=== PATIENT | female | born 1965 | race Caucasian/White ===

== ENCOUNTER 2016-06-11 10:04 | Outpatient (CLI) | payer MEDICAID | END 2016-06-11 10:05 | disposition home or self-care (01) | DX: Z00.00 Encounter for general adult medical examination without abnormal findings (principal) ==

== ENCOUNTER 2017-11-16 15:22 | Outpatient (CLI) | payer MEDICAID ==
[2017-11-16 15:47] LABS: MUDS CUTOFF CONCENTRATIONS CUTOFF CONC BELOW:
[2017-11-16 16:03] LABS: AMPHETAMINE SCREEN,URINE POSITIVE (NEGATIVE); BENZODIAZEPINES SCREEN, URINE POSITIVE (NEGATIVE); COCAINE SCREEN URINE NEGATIVE (NEGATIVE); METHADONE SCREEN, URINE NEGATIVE (NEGATIVE); METHAMPHETAMINES SCREEN, URINE POSITIVE (NEGATIVE); OPIATE SCREEN, URINE NEGATIVE (NEGATIVE); OXYCODONE SCREEN, URINE NEGATIVE (NEGATIVE); PROPOXYPHENE SCREEN, URINE NEGATIVE (NEGATIVE); TRICYCLIC ANTIDEPRESSANT,URINE POSITIVE (NEGATIVE)
== END 2017-11-16 15:23 | disposition home or self-care (01) ==
LOC: LAB 15:22
PROVIDERS: ATTEND Nurse Practitioner Psychiatric/Mental Health
DX: F33.0 Major depressive disorder, recurrent, mild (principal)
CPT/HCPCS: 80306

== ENCOUNTER 2018-01-27 16:36 | Emergency (ER) | payer MEDICAID ==
[2018-01-27] MEDS ORDERED: KETOROLAC 60 MG/2 ML VIAL IM STA (17:28)
[2018-01-27] MEDS ORDERED: CYCLOBENZAPRINE 10 MG TABLET PO STA (17:28)
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
--- NOTE | 2018-01-27 18:23 | XRAY Report ---
Reason: knee pain and swelling Procedure Date: 01/27/2018 Accession Number: [id number] / [id number] Procedure: XR - Knee 4 View RT CPT Code: FULL RESULT: EXAM: RIGHT KNEE RADIOGRAPHY EXAM DATE: 01/27/2018 05:46 PM. CLINICAL HISTORY: Knee pain and swelling. COMPARISON: 03/26/2016. TECHNIQUE: 4 views. FINDINGS: Bones: No acute fracture. Joints: Severe medial compartment joint space narrowing. Tricompartmental osteophytes. Small amount of suprapatellar joint fluid. Soft Tissues: No focal soft tissue swelling. IMPRESSION: 1. No acute osseus abnormality. 2. Severe medial compartment osteoarthrosis. RADIA
--- NOTE | 2018-01-27 18:26 | XRAY Report ---
Reason: fall Procedure Date: 01/27/2018 Accession Number: [id number] / [id number] Procedure: XR - Pelvis 1 View CPT Code: FULL RESULT: EXAM: PELVIS RADIOGRAPHY EXAM DATE: 01/27/2018 05:46 PM. CLINICAL HISTORY: Fall. COMPARISON: None. TECHNIQUE: 1 view. FINDINGS: No evidence of acute fracture. Pelvic ring appears intact. Sacroiliac joints, pubic symphysis and hip joints are preserved. IMPRESSION: No acute findings. RADIA
--- NOTE | 2018-01-27 19:11 | Ultrasound Report ---
Reason: hx DVT leg pain and some swelling Procedure Date: 01/27/2018 Accession Number: [id number] / [id number] Procedure: US - Duplex Ext Veins Right CPT Code: FULL RESULT: EXAM: RIGHT LOWER EXTREMITY VENOUS ULTRASOUND EXAM DATE: 01/27/2018 06:40 PM. CLINICAL HISTORY: Right leg pain and swelling. COMPARISON: DUPLEX EXT VEINS RIGHT 02/27/2015 4:25 PM. TECHNIQUE: Real-time sonographic vascular imaging was performed by the calender roll operator through the lower extremity utilizing both color-flow and Doppler spectral analysis. Multiple manufacturers representative static images were saved for review. FINDINGS: Common Femoral Vein (CFV): Normal. CFV-GSV Junction: Normal. Profunda Femoral Vein (PFV): Normal. Femoral Vein (FV) Prox: Normal. Femoral Vein (FV) Mid: Normal. Femoral Vein (FV) Dist: Normal. Popliteal Vein: Normal. Posterior Tibial Veins: Normal. Peroneal Veins: Normal. Contralateral Side CFV: Normal. Other: None. IMPRESSION: No evidence for deep venous thrombosis. RADIA
[2018-01-27 19:24] VITALS: BP 148/92
== END 2018-01-27 19:30 | disposition home or self-care (01) ==
LOC: ED 16:36
DX: M54.5 Low back pain (principal); R20.0 Anesthesia of skin; R22.41 Localized swelling, mass and lump, right lower limb; Z86.718 Personal history of other venous thrombosis and embolism; F17.200 Nicotine dependence, unspecified, uncomplicated
CPT/HCPCS: 72170; 73564; 93971; 96372; 99283; A9270

== ENCOUNTER 2018-08-22 08:00 | Outpatient (CLI) | payer MEDICAID ==
[2018-08-22 10:03] LABS: BASOPHILS # (AUTO) 0.1 10^3/uL (0.0-0.1); BASOPHILS % (AUTO) 1.5 %; EOSINOPHILS # (AUTO) 0.4 10^3/uL (0.0-0.7); EOSINOPHILS % (AUTO) 5.7 %; LYMPHOCYTES # (AUTO) 2.5 10^3/uL (1.5-3.5); LYMPHOCYTES % (AUTO) 34.5 %; MEAN CORPUSCULAR HEMOGLOBIN 28.3 pg (27.0-31.0); MEAN CORPUSCULAR HGB CONC 32.7 g/dL (32.0-36.0); MEAN CORPUSCULAR VOLUME 86.4 fL (81.0-99.0); MEAN PLATELET VOLUME 7.4 fL (7.9-10.8); MONOCYTES # (AUTO) 0.4 10^3/uL (0.0-1.0); MONOCYTES % (AUTO) 5.3 %; NEUTROPHILS # (AUTO) 3.9 10^3/uL (1.5-6.6); PLT - PLATELET COUNT 277 10^3/uL (130-450); RED BLOOD COUNT 4.95 10^6/uL (4.20-5.40); RED CELL DISTRIBUTION WIDTH 14.2 % (12.0-15.0); WHITE BLOOD COUNT 7.3 x10^3/uL (4.8-10.8)
[2018-08-22 10:22] LABS: ALBUMIN 3.7 g/dL (3.2-5.5); ALBUMIN/GLOBULIN RATIO 1.3 (1.0-2.2); ALKALINE PHOSPHATASE 82 IU/L (42-121); ALT ALANINE AMINOTRANSFERASE 19 IU/L (10-60); AST ASPARTATE AMINOTRANSFERASE 23 IU/L (10-42); BILIRUBIN,TOTAL 0.6 mg/dL (0.2-1.0); BUN - BLOOD UREA NITROGEN 18 mg/dL (6-20); CALCIUM 8.8 mg/dL (8.5-10.3); CARBON DIOXIDE - CO2 24 mmol/L (21-32); CHLORIDE 103 mmol/L (101-111); CHOL/HDL RATIO 3.8 (<4.4); CHOLESTEROL 180 mg/dL; CREATININE 0.8 mg/dL (0.4-1.0); GFR - MDRD 75 (>89); GLUCOSE 107 mg/dL (70-100); HDL CHOLESTEROL 47 mg/dL; LDL CHOLESTEROL,CALCULATED 104 mg/dL; LDL/HDL RATIO 2.2 (<4.4); SODIUM 137 mmol/L (135-145); TOTAL PROTEIN 6.6 g/dL (6.7-8.2); VLDL CHOLESTEROL 29 mg/dL
[2018-08-22 10:35] LABS: HEMOGLOBIN A1C 0.6 g/dL; HEMOGLOBIN A1C % 5.8 % (4.6-6.2)
== END 2018-08-22 23:59 | disposition home or self-care (01) ==
LOC: LAB 08:00
PROVIDERS: ATTEND Licensed Practical Nurse
DX: F43.10 Post-traumatic stress disorder, unspecified (principal); Z79.899 Other long term (current) drug therapy
CPT/HCPCS: 36415; 80050; 80061; 83036; 83721

== ENCOUNTER 2018-08-24 12:12 | Emergency (ER) | payer MEDICAID ==
--- NOTE | 2018-08-24 14:08 | ED Physician Documentation ---
History of Present Illness - Stated complaint Stated Complaint: HIGH BP - Chief complaint Chief Complaint: Cardiac - History obtained from History obtained from: Patient - History of Present Illness Timing: Chronic Pain level max: 0 Pain level now: 0 - Additonal information Additional information: Patient states that she has had high blood pressure for the past 4 years. Does not have a primary care doctor but does see [facility]. They state that they are going to start her on blood pressure medications on Wednesday, but recommend she come to the ER to be checked today. Patient is fully asymptomatic. No chest pain, no lightheadedness, no headaches, no shortness of breath, no vision changes. Had lab work done Wednesday that was reportedly normal. Nothing makes this better or worse. 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 - Present Medications Home Medications: Ambulatory Orders Medication Instructions Recorded Confirmed Albuterol [Ventolin Hfa] 2 puffs INH Q4H PRN 04/06/13 03/10/15 QUEtiapine [SEROquel] 500 mg PO DAILY 06/07/14 03/10/15 Cyclobenzaprine [Flexeril] 10 mg PO TID PRN #20 tablet 01/27/18 Ibuprofen [Motrin] 400 mg PO Q6H PRN #30 tablet 01/27/18 - Allergies Allergies/Adverse Reactions: Allergies Allergy/AdvReac Type Severity Reaction Status Date / Time sodium ferric gluconate Allergy Severe Respiratory Verified 08/24/18 12:24 complex [From Ferrlecit] sucrose [From Ferrlecit] Allergy Severe Respiratory Verified 08/24/18 12:24 acetaminophen [From Percocet] Allergy vomiting Verified 08/24/18 12:24 adhesive Allergy Rash Verified 08/24/18 12:24 amoxicillin [Amoxicillin] Allergy Rash Verified 08/24/18 12:24 iron Allergy Unknown Verified 08/24/18 12:25 oxycodone HCl * Allergy vomiting Verified 08/24/18 12:24 [From Percocet] Penicillins Allergy Rash Verified 08/24/18 12:24 - Social History Does the pt smoke?: Yes Smoking Status: Current every day smoker Does the pt drink ETOH?: No Does the pt have substance abuse?: No - Immunizations Immunizations are current?: No - POLST Patient has POLST: No PD ED PE NORMAL - Vitals Vital signs reviewed: Yes - General General: Alert and oriented X 3, No acute distress, Well developed/nourished - HEENT HEENT: PERRL, Moist mucous membranes - Neck Neck: Supple, no meningeal sign - Cardiac Cardiac: RRR, Strong equal pulses - Respiratory Respiratory: No respiratory distress, Clear bilaterally - Abdomen Abdomen: Soft, Non tender, Non distended - Derm Derm: Warm and dry - Extremities Extremities: No tenderness to palpate, No edema - Neuro Neuro: Alert and oriented X 3 - Psych Psych: Normal mood, Normal affect Results - Vitals Vitals: Vital Signs - 24 hr 08/24/18 12:22 Temperature 36.8 C Heart Rate 104 H Respiratory 17 Rate Blood Pressure 150/121 H O2 Saturation 98 Oxygen O2 Source Room air PD MEDICAL DECISION MAKING - ED course Complexity details: reviewed old records, considered differential, d/w patient ED course: Patient with asymptomatic hypertension. This is been ongoing for several years. No acute changes today. Asymptomatic. No significant abnormalities on recent blood work. We will follow-up with her doctor on Wednesday to have her medications started. Patient counseled regarding signs and symptoms for which I believe and urgent re-evaluation would be necessary. Patient with good understanding of and agreement to plan and is comfortable going home at this time This document was made in part using voice recognition software. While efforts are made to proofread this document, sound alike and grammatical errors may occur. Departure - Departure Disposition: 01 Home, Self Care Clinical Impression: Hypertension Qualifiers: Hypertension type: unspecified Qualified Code(s): I10 - Essential (primary) hypertension Condition: Good Instructions: ED HTN Established Follow-Up: your,doctor in 1 week [Other] Comments: Follow-up with your doctor for further care. They do need to start you on blood pressure medication. Return if you worsen
[2018-08-24 14:13] VITALS: BP 190/129
== END 2018-08-24 14:13 | disposition home or self-care (01) ==
LOC: ED 12:12
DX: I10 Essential (primary) hypertension (principal); F17.200 Nicotine dependence, unspecified, uncomplicated
CPT/HCPCS: 99283

== ENCOUNTER 2018-10-19 17:31 | Emergency (ER) | payer MEDICAID ==
--- NOTE | 2018-10-19 18:58 | ED Physician Documentation ---
History of Present Illness - Stated complaint Stated Complaint: GLF/RT SIDE PX - Chief complaint Chief Complaint: Trauma Ch/Bk - History obtained from History obtained from: Patient - History of Present Illness Timing: How many days ago (5) Pain level max: 7 Pain level now: 5 - Additonal information Additional information: RLQ pain x 5 days, getting progressively worse. States worse with movement and better with rest. No fevers. No nausea. no vomiting. Patient states that this started a day after she fell. She does not remember striking any objects. Review of Systems Constitutional: denies: Fever, Chills GI: denies: Nausea, Vomiting, Diarrhea : denies: Dysuria, Frequency, Hesitancy Skin: denies: Rash Musculoskeletal: denies: Neck pain, Back pain Neurologic: denies: Headache PD PAST MEDICAL HISTORY - Past Medical History Past Medical History: Yes Cardiovascular: Deep vein thrombosis Respiratory: Asthma, Sleep apnea, Other Endocrine/Autoimmune: None GI: GERD, Ulcers : None HEENT: Other Psych: Bipolar disorder, ADD/ADHD, Post traumatic stress disorder Musculoskeletal: Chronic back pain Derm: None - Past Surgical History Past Surgical History: Yes 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 - Present Medications Home Medications: Ambulatory Orders Medication Instructions Recorded Confirmed Albuterol [Ventolin Hfa] 2 puffs INH Q4H PRN 04/06/13 03/10/15 QUEtiapine [SEROquel] 100 mg PO DAILY 06/07/14 03/10/15 Ibuprofen [Motrin] 800 mg PO ONCE 10/19/18 - Allergies Allergies/Adverse Reactions: Allergies Allergy/AdvReac Type Severity Reaction Status Date / Time sodium ferric gluconate Allergy Severe Respiratory Verified 10/19/18 17:44 complex [From Ferrlecit] sucrose [From Ferrlecit] Allergy Severe Respiratory Verified 10/19/18 17:44 acetaminophen [From Percocet] Allergy vomiting Verified 10/19/18 17:44 adhesive Allergy Rash Verified 10/19/18 17:44 amoxicillin [Amoxicillin] Allergy Rash Verified 10/19/18 17:44 iron Allergy Unknown Verified 10/19/18 17:44 oxycodone HCl * Allergy vomiting Verified 10/19/18 17:44 [From Percocet] Penicillins Allergy Rash Verified 10/19/18 17:44 - Social History Does the pt smoke?: Yes Smoking Status: Current every day smoker Does the pt drink ETOH?: No Does the pt have substance abuse?: No - Immunizations Immunizations are current?: No - POLST Patient has POLST: No PD ED PE NORMAL - Vitals Vital signs reviewed: Yes - General General: Alert and oriented X 3, No acute distress, Other (Obese female) - HEENT HEENT: Moist mucous membranes - Neck Neck: Supple, no meningeal sign - Cardiac Cardiac: RRR, Strong equal pulses - Respiratory Respiratory: No respiratory distress, Clear bilaterally - Abdomen Abdomen: Soft, Other (Tender palpation right lower quadrant. No peritoneal signs.) - Back Back: No CVA TTP, No spinal TTP - Derm Derm: Warm and dry - Neuro Neuro: Alert and oriented X 3 - Psych Psych: Normal mood, Normal affect Results - Vitals Vitals: Vital Signs - 24 hr 10/19/18 10/19/18 17:40 21:10 Temperature 36 C L 36.7 C Heart Rate 97 85 Respiratory 18 22 Rate Blood Pressure 157/95 H 157/110 H O2 Saturation 98 97 Oxygen O2 Source Room air - Labs Labs: Laboratory Tests 10/19/18 10/19/18 10/19/18 19:00 19:00 19:00 WBC 7.8 RBC 4.72 Hgb 13.7 Hct 41.8 MCV 88.6 MCH 29.0 MCHC 32.8 RDW 13.2 Plt Count 334 MPV 9.4 Neut # (Auto) 4.3 Lymph # (Auto) 2.6 [place]acken # (Auto) 0.5 Eos # (Auto) 0.4 Baso # (Auto) 0.1 Absolute Nucleated RBC 0.00 Nucleated RBC % 0.0 Sodium 140 Potassium 3.8 Chloride 106 Carbon Dioxide 22 Anion Gap 12.0 BUN 29 H Creatinine 0.9 Estimated GFR (MDRD) 66 L Glucose 129 H Calcium 9.1 Total Bilirubin < 0.2 L AST 23 ALT 21 Alkaline Phosphatase 84 Total Protein 7.3 Albumin 4.2 Globulin 3.1 Albumin/Globulin Ratio 1.4 Lipase 25 Urine Color YELLOW Urine Clarity CLEAR Urine pH 6.0 Ur Specific [place] 1.025 Urine Protein NEGATIVE Urine Glucose (UA) NEGATIVE Urine Ketones NEGATIVE Urine Occult Blood NEGATIVE Urine Nitrite NEGATIVE Urine Bilirubin NEGATIVE Urine Urobilinogen 0.2 (NORMAL) Ur Leukocyte Esterase NEGATIVE Ur Microscopic Review NOT INDICATED Urine Culture Comments NOT INDICATED - Rads (name of study) CT abdomen pelvis Radiology: Prelim report reviewed, EMP read contemporaneously, See rad report (No acute abnormalities of the abdomen and pelvis, noting normal appendix. 2. Moderate diverticulosis without diverticulitis. 3. Degenerative disk disease at L2-L3. ) PD MEDICAL DECISION MAKING - ED course Complexity details: reviewed results, re-evaluated patient, considered differential, d/w patient ED course: 53-year-old female the right lower quadrant pain after a fall. Negative CT. Negative laboratory testing. Patient declines pain medication here for home. We will continue supportive care. Likely abdominal wall strain. Patient counseled regarding signs and symptoms for which I believe and urgent re- evaluation would be necessary. Patient with good understanding of and agreement to plan and is comfortable going home at this time This document was made in part using voice recognition software. While efforts are made to proofread this document, sound alike and grammatical errors may occur. Departure - Departure Disposition: 01 Home, Self Care Clinical Impression: Abdominal wall strain Qualifiers: Encounter type: initial encounter Qualified Code(s): S39.011A - Strain of muscle, fascia and tendon of abdomen, initial encounter Condition: Good Instructions: ED Strain Abdominal Muscle Follow-Up: Kamaljit Shepard MD [Primary Care Provider] - Within 1 week Comments: Your CT and labs are normal tonight. Return if you worsen. you can use Motrin and Tylenol as needed for pain. Heating pads may help as well. Discharge Date/Time: 10/19/18 21:16
[2018-10-19] MEDS ORDERED: IOVERSOL 320 100 ML VIAL IVP ONE ×2 (19:05→19:53)
[2018-10-19 19:12] LABS: BASOPHILS # (AUTO) 0.1 10^3/uL (0.0-0.1); BASOPHILS % (AUTO) 0.8 %; EOSINOPHILS # (AUTO) 0.4 10^3/uL (0.0-0.7); EOSINOPHILS % (AUTO) 5.2 %; HGB - HEMOGLOBIN 13.7 g/dL (12.0-16.0); LYMPHOCYTES # (AUTO) 2.6 10^3/uL (1.5-3.5); LYMPHOCYTES % (AUTO) 32.7 %; MEAN CORPUSCULAR HGB CONC 32.8 g/dL (32.0-36.0); MEAN CORPUSCULAR VOLUME 88.6 fL (81.0-99.0); MEAN PLATELET VOLUME 9.4 fL (7.9-10.8); MONOCYTES # (AUTO) 0.5 10^3/uL (0.0-1.0); NEUTROPHILS # (AUTO) 4.3 10^3/uL (1.5-6.6); NEUTROPHILS % (AUTO) 54.9 %; PLT - PLATELET COUNT 334 10^3/uL (130-450); RED BLOOD COUNT 4.72 10^6/uL (4.20-5.40); RED CELL DISTRIBUTION WIDTH 13.2 % (12.0-15.0); WHITE BLOOD COUNT 7.8 x10^3/uL (4.8-10.8)
[2018-10-19 19:21] LABS: ALBUMIN 4.2 g/dL (3.2-5.5); ALBUMIN/GLOBULIN RATIO 1.4 (1.0-2.2); ALKALINE PHOSPHATASE 84 IU/L (42-121); ALT ALANINE AMINOTRANSFERASE 21 IU/L (10-60); AST ASPARTATE AMINOTRANSFERASE 23 IU/L (10-42); BILIRUBIN,TOTAL < 0.2 mg/dL (0.2-1.0); BUN - BLOOD UREA NITROGEN 29 mg/dL (6-20); CALCIUM 9.1 mg/dL (8.5-10.3); CARBON DIOXIDE - CO2 22 mmol/L (21-32); CHLORIDE 106 mmol/L (101-111); CREATININE 0.9 mg/dL (0.4-1.0); GFR - MDRD 66 (>89); GLUCOSE 129 mg/dL (70-100); LIPASE 25 U/L (22-51); SODIUM 140 mmol/L (135-145); TOTAL PROTEIN 7.3 g/dL (6.7-8.2)
[2018-10-19 19:26] LABS: BILIRUBIN,URINE NEGATIVE (NEGATIVE); GLUCOSE, URINE (UA) NEGATIVE (NEGATIVE); KETONES,URINE (UA) NEGATIVE (NEGATIVE); LEUKOCYTE ESTERASE, URINE NEGATIVE (NEGATIVE); NITRITE,URINE NEGATIVE (NEGATIVE); OCCULT BLOOD,URINE NEGATIVE (NEGATIVE); PROTEIN,URINE NEGATIVE (NEGATIVE); UROBILINOGEN,URINE 0.2 (NORMAL) E.U./dL (NORMAL)
[2018-10-19 19:28] LABS: CLARITY,URINE CLEAR (CLEAR)
--- NOTE | 2018-10-19 20:24 | CT Report ---
Reason: RLQ abd pain Procedure Date: 10/19/2018 Accession Number: [id number] / [id number] Procedure: CT - Abdomen/Pelvis W CPT Code: FULL RESULT: EXAM: CT ABDOMEN AND PELVIS EXAM DATE: 10/19/2018 07:50 PM. CLINICAL HISTORY: Right lower quadrant pain. COMPARISONS: None. TECHNIQUE: Routine helical CT imaging was performed through the abdomen and pelvis. IV contrast: 100 cc of Optiray 320. Enteric contrast: No. Reconstructions: Coronal and sagittal. In accordance with CT protocol optimization, one or more of the following dose reduction techniques were utilized for this exam: automated exposure control, adjustment of mA and/or KV based on patient size, or use of iterative reconstructive technique. FINDINGS: Lung Bases: Unremarkable. Liver: Normal. No masses. Gallbladder/Bile Ducts: Unremarkable. Spleen: Normal. Pancreas: Normal. Adrenal Glands: Normal. Kidneys: Normal. No masses or hydronephrosis. Peritoneal Cavity/Bowel: Moderate diverticulosis. No free fluid, free air or adenopathy. No masses or acute inflammatory process. The appendix is well visualized and normal. Pelvic Organs: Normal. The bladder and visualized pelvic organs are within normal limits. Vasculature: No aneurysms or other significant abnormality. Bones: Degenerative disk disease at L2-L3. Other: None. IMPRESSION: 1. No acute abnormalities of the abdomen and pelvis, noting normal appendix. 2. Moderate diverticulosis without diverticulitis. 3. Degenerative disk disease at L2-L3. RADIA
[2018-10-19 21:11] VITALS: BP 157/110
== END 2018-10-19 21:16 | disposition home or self-care (01) ==
LOC: ED 17:31
DX: S39.011A Strain of muscle, fascia and tendon of abdomen, initial encounter (principal); W01.0XXA Fall on same level from slipping, tripping and stumbling without subsequent striking against object, initial encounter; M51.36 Other intervertebral disc degeneration, lumbar region; K57.30 Diverticulosis of large intestine without perforation or abscess without bleeding; F17.200 Nicotine dependence, unspecified, uncomplicated
CPT/HCPCS: 36415; 74177; 80053; 81003; 83690; 85025; 99282; 99284; Q9967; 81001; 87086

== ENCOUNTER 2019-04-07 03:23 | Emergency (ER) | payer MEDICAID ==
--- NOTE | 2019-04-07 05:01 | ED Physician Documentation ---
PD HPI URI - Stated complaint Stated Complaint: CP/CONGESTION - Chief complaint Chief Complaint: Resp - History obtained from History obtained from: Patient - History of Present Illness Timing - onset: How many weeks ago (2) Timing duration: Weeks Timing details: Gradual onset, Waxing and waning Pain level max: 0 Pain level now: 0 Associated symptoms: Sore throat (at beginning of illness, but this has resolved), Productive cough, Dyspnea. No: Fever, Chest pain Contributing factors: Sick contact (s.o. is registered in ED as patient, has similar symptoms) Improves by: Rest Worsened by: Activity Recently seen: Not recently seen Review of Systems Constitutional: reports: Reviewed and negative Throat: reports: Sore throat (resolved) Cardiac: reports: Reviewed and negative Respiratory: reports: Dyspnea, Cough, Wheezing PD PAST MEDICAL HISTORY - Past Medical History Cardiovascular: Deep vein thrombosis Respiratory: Asthma, Sleep apnea, Other Endocrine/Autoimmune: None GI: GERD, Ulcers : None HEENT: Other Psych: Bipolar disorder, ADD/ADHD, Post traumatic stress disorder Musculoskeletal: Chronic back pain Derm: None - Past Surgical History Past Surgical History: Yes 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 - Present Medications Home Medications: Ambulatory Orders Medication Instructions Recorded Confirmed Albuterol [Ventolin Hfa] 2 puffs INH Q4H PRN 04/06/13 03/10/15 QUEtiapine [SEROquel] 100 mg PO DAILY 06/07/14 03/10/15 Ibuprofen [Motrin] 800 mg PO ONCE 10/19/18 Albuterol Sulf [Ventolin Hfa 1 - 2 puffs INH Q4HR PRN #1 inhaler 04/07/19 Inhaler] - Allergies Allergies/Adverse Reactions: Allergies Allergy/AdvReac Type Severity Reaction Status Date / Time sodium ferric gluconate Allergy Severe Respiratory Verified 10/19/18 17:44 complex [From Ferrlecit] sucrose [From Ferrlecit] Allergy Severe Respiratory Verified 10/19/18 17:44 acetaminophen [From Percocet] Allergy vomiting Verified 10/19/18 17:44 adhesive Allergy Rash Verified 10/19/18 17:44 amoxicillin [Amoxicillin] Allergy Rash Verified 10/19/18 17:44 iron Allergy Unknown Verified 10/19/18 17:44 oxycodone HCl * Allergy vomiting Verified 10/19/18 17:44 [From Percocet] Penicillins Allergy Rash Verified 10/19/18 17:44 - Social History Does the pt smoke?: Yes Smoking Status: Current every day smoker Does the pt drink ETOH?: No Does the pt have substance abuse?: No - Immunizations Immunizations are current?: No - POLST Patient has POLST: No PD ED PE NORMAL - Vitals Vital signs reviewed: Yes - General General: Alert and oriented X 3, No acute distress, Well developed/nourished - HEENT HEENT: Pharynx benign - Cardiac Cardiac: RRR, No murmur - Respiratory Respiratory: No respiratory distress, Clear bilaterally Results - Vitals Vitals: Oxygen O2 Source Room air PD MEDICAL DECISION MAKING - ED course Complexity details: reviewed old records, considered differential, d/w patient ED course: here with s.o. who has similar symptoms. Patient has occasional bronchospastic cough during H+P. we discussed abx, particularly because her s.o. has significant exudative pharyngitis. patient says she had sore throat but it has resolved. her lungs are CTA bilaterally. she says she does not want an antibiotic and is content to have just an MDI for albuterol at this time Departure - Departure Disposition: 01 Home, Self Care Clinical Impression: Bronchitis Condition: Good Instructions: ED Reactive Airway Disease, ED Upper Resp Infec No Abx Tx Prescriptions: Albuterol Sulf [Ventolin Hfa Inhaler] 1 - 2 puffs INH Q4HR PRN #1 inhaler PRN Reason: Shortness Of Air/Wheezing Discharge Date/Time: 04/07/19 06:02
[2019-04-07 06:02] VITALS: BP 167/95
== END 2019-04-07 06:02 | disposition home or self-care (01) ==
LOC: ED 03:23
DX: J40 Bronchitis, not specified as acute or chronic (principal); F17.200 Nicotine dependence, unspecified, uncomplicated
CPT/HCPCS: 93005; 99283

== ENCOUNTER 2019-04-21 13:01 | Emergency (ER) | payer MEDICAID ==
--- NOTE | 2019-04-21 14:13 | ED Physician Documentation ---
PD HPI HEENT - Stated complaint Stated Complaint: DENTAL PX - Chief complaint Chief Complaint: Heent - History obtained from History obtained from: Patient - History of Present Illness Timing - onset: How many days ago (few days ago, had part of tooth break off and has increasing pain in area. No noted drainage nor swelling. Pain to the jaw and feeling it up to the TMJ area.) Timing - duration: Days Timing - details: Gradual onset, Still present Location: Tooth. No: Right ear, Throat Improves: No: Medication (ibuprofen) Associated symptoms: No: Fever, Congestion, Facial swelling Similar symptoms before: Diagnosis (dental infections - tried to get into dental clinic, but they did not have appts available for weeks.) Recently seen: Not recently seen Review of Systems Constitutional: denies: Fever, Chills, Myalgias Ears: reports: Drainage/discharge Nose: reports: Rhinorrhea / runny nose Cardiac: denies: Chest pain / pressure Respiratory: denies: Dyspnea, Cough GI: denies: Abdominal Pain, Nausea, Vomiting : denies: Dysuria PD PAST MEDICAL HISTORY - Past Medical History Cardiovascular: Deep vein thrombosis Respiratory: Asthma, Sleep apnea, Other Endocrine/Autoimmune: None GI: GERD, Ulcers : None HEENT: Other Psych: Bipolar disorder, ADD/ADHD, Post traumatic stress disorder Musculoskeletal: Chronic back pain Derm: None - Past Surgical History Past Surgical History: Yes Ortho: 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: 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 - Present Medications Home Medications: Ambulatory Orders Medication Instructions Recorded Confirmed Albuterol [Ventolin Hfa] 2 puffs INH Q4H PRN 04/06/13 03/10/15 QUEtiapine [SEROquel] 100 mg PO DAILY 06/07/14 03/10/15 Ibuprofen [Motrin] 800 mg PO ONCE 10/19/18 Albuterol Sulf [Ventolin Hfa 1 - 2 puffs INH Q4HR PRN #1 inhaler 04/07/19 Inhaler] Clindamycin HCl [Clindamycin 300MG 300 mg PO TID #20 capsule 04/21/19 CAP] Hydrocodone/Acetaminophen [[place] 1 each PO Q6H PRN #20 tablet 04/21/19 7.5-325 Tablet] Lidocaine Viscous 2% [Xylocaine 1 applic PO Q4H PRN #20 ml 04/21/19 Viscous 2%] - Allergies Allergies/Adverse Reactions: Allergies Allergy/AdvReac Type Severity Reaction Status Date / Time sodium ferric gluconate Allergy Severe Respiratory Verified 10/19/18 17:44 complex [From Ferrlecit] sucrose [From Ferrlecit] Allergy Severe Respiratory Verified 10/19/18 17:44 acetaminophen [From Percocet] Allergy vomiting Verified 10/19/18 17:44 adhesive Allergy Rash Verified 10/19/18 17:44 amoxicillin [Amoxicillin] Allergy Rash Verified 10/19/18 17:44 iron Allergy Unknown Verified 10/19/18 17:44 oxycodone HCl * Allergy vomiting Verified 10/19/18 17:44 [From Percocet] Penicillins Allergy Rash Verified 10/19/18 17:44 - Social History Does the pt smoke?: Yes Smoking Status: Current every day smoker Does the pt drink ETOH?: No Does the pt have substance abuse?: No - Immunizations Immunizations are current?: No - POLST Patient has POLST: No PD ED PE NORMAL - Vitals Vital signs reviewed: Yes - General General: Alert and oriented X 3, Well developed/nourished, Other (appears in pain and holding right jaw with hand. ) - HEENT HEENT: Ears normal, Pharynx benign. No: Dentition benign (caries noted, and there is part of core of tooth missing in the painful area, tender to palpation in the gum without swelling/fluctuance noted. ) - Neck Neck: Supple, no meningeal sign, No adenopathy - Cardiac Cardiac: RRR, No murmur - Respiratory Respiratory: Clear bilaterally - Derm Derm: Normal color, Warm and dry, No rash Results - Vitals Vitals: Vital Signs - 24 hr 04/21/19 04/21/19 13:08 15:10 Temperature 36.6 C 36.8 C Heart Rate 95 92 Respiratory 14 22 Rate Blood Pressure 180/100 H 188/138 H O2 Saturation 98 94 Oxygen O2 Source Room air PD MEDICAL DECISION MAKING - ED course Complexity details: considered differential (dental decay and nerve pain vs early infection), d/w patient Departure - Departure Disposition: 01 Home, Self Care Clinical Impression: Pain due to dental caries Condition: Stable Record reviewed to determine appropriate education?: Yes Instructions: ED Tooth Pain Prescriptions: Clindamycin HCl [Clindamycin 300MG CAP] 300 mg PO TID #20 capsule Hydrocodone/Acetaminophen [[place] 7.5-325 Tablet] 1 each PO Q6H PRN #20 tablet PRN Reason: Pain Lidocaine Viscous 2% [Xylocaine Viscous 2%] 1 applic PO Q4H PRN #20 ml PRN Reason: Pain Comments: Rinse the tooth and gum area with warm water or baking soda or with water to cleanse the area 2-3 times a day. Use lidocaine small amount with Q-tip to help with numbing the tooth area. Continue some anti-inflammatories such as ibup rofen 2 tablets 3 times a day. Add hydrocodone as needed for pain. Also add clindamycin antibiotic 3 times a day for a week. Recheck if not improving over the next several days. Follow-up with dentist as soon as they have an available appointment Discharge Date/Time: 04/21/19 15:12
[2019-04-21] MEDS ORDERED: NAPROXEN 250 MG TABLET PO STA (14:44)
[2019-04-21] MEDS ORDERED: LIDOCAINE VISCOUS 2% 15 ML UDC MM STA (14:44)
[2019-04-21] MEDS ORDERED: HYDROcod/ACETAM 5/325 MG TABLET PO STA (14:45)
[2019-04-21] MEDS ORDERED: CLINDAMYCIN 150 MG CAPSULE PO STA (14:46)
[2019-04-21 15:11] VITALS: BP 188/138
== END 2019-04-21 15:12 | disposition home or self-care (01) ==
LOC: ED 13:01
DX: K02.9 Dental caries, unspecified (principal); S02.5XXA Fracture of tooth (traumatic), initial encounter for closed fracture; X58.XXXA Exposure to other specified factors, initial encounter; F17.200 Nicotine dependence, unspecified, uncomplicated
CPT/HCPCS: 99282; 99284; A9270

== ENCOUNTER 2019-09-02 12:44 | Emergency (ER) | payer MEDICAID ==
--- NOTE | 2019-09-02 13:40 | ED Physician Documentation ---
PD HPI HEENT - Stated complaint Stated Complaint: TOOTH PX - Chief complaint Chief Complaint: Heent - History obtained from History obtained from: Patient - History of Present Illness Timing - onset: How many days ago (several days of swelling and pain) Timing - duration: Days (several days of swelling and pain, with some discharge from gum after fracture of the tooth from decay a month ago. Tried to see [facility] but they were not yet open.) Timing - details: Gradual onset, Still present Location: Tooth (right lower frontal.) Associated symptoms: No: Fever, Congestion, Facial swelling Similar symptoms before: Diagnosis (dental decay and infections in the past) Review of Systems Constitutional: denies: Fever, Chills, Myalgias Nose: denies: Rhinorrhea / runny nose, Congestion Throat: denies: Sore throat Respiratory: denies: Cough GI: denies: Nausea, Vomiting Skin: denies: Rash, Lesions PD PAST MEDICAL HISTORY - Past Medical History Past Medical History: Yes Cardiovascular: Hypertension, Deep vein thrombosis Respiratory: Asthma, Sleep apnea, Other Neuro: None Endocrine/Autoimmune: None GI: GERD, Ulcers LICENSING SPECIALIST: None : None HEENT: Other Psych: ADD/ADHD, Post traumatic stress disorder Musculoskeletal: Chronic back pain Derm: None - Past Surgical History Past Surgical History: Yes Ortho: 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 surgery /LICENSING SPECIALIST: 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 - Present Medications Home Medications: Ambulatory Orders Medication Instructions Recorded Confirmed Albuterol [Ventolin Hfa] 2 puffs INH Q4H PRN 04/06/13 09/02/19 QUEtiapine [SEROquel] 100 mg PO DAILY 06/07/14 09/02/19 Azithromycin [Zithromax] 250 mg PO DAILY #6 tablet 09/02/19 Hydrocodone/Acetaminophen [[place] 1 each PO Q6H PRN #20 tablet 09/02/19 5-325 Tablet] Naproxen 500 mg PO BID #20 tablet 09/02/19 - Allergies Allergies/Adverse Reactions: Allergies Allergy/AdvReac Type Severity Reaction Status Date / Time sodium ferric gluconate Allergy Severe Respiratory Verified 09/02/19 13:02 complex [From Ferrlecit] sucrose [From Ferrlecit] Allergy Severe Respiratory Verified 09/02/19 13:02 acetaminophen [From Percocet] Allergy vomiting Verified 09/02/19 13:02 adhesive Allergy Rash Verified 09/02/19 13:02 amoxicillin [Amoxicillin] Allergy Rash Verified 09/02/19 13:02 clindamycin Allergy Rash Verified 09/02/19 13:08 iron Allergy Unknown Verified 09/02/19 13:02 oxycodone HCl * Allergy vomiting Verified 09/02/19 13:02 [From Percocet] Penicillins Allergy Rash Verified 09/02/19 13:02 - Social History Does the pt smoke?: Yes Smoking Status: Former smoker Does the pt drink ETOH?: No Does the pt have substance abuse?: No - Immunizations Immunizations are current?: No - POLST Patient has POLST: No PD ED PE NORMAL - Vitals Vital signs reviewed: Yes - General General: Alert and oriented X 3, Well developed/nourished, Other (appears in pain) - HEENT HEENT: Moist mucous membranes, Other (right lower frontal tooth with decay and is broken vertically (so not really amenable to temporary filling). There is swelling and tender in gum without fluctuance.) Results - Vitals Vitals: Vital Signs - 24 hr 09/02/19 09/02/19 13:03 14:16 Temperature 36.8 C 37.0 C Heart Rate 105 H 105 H Respiratory 20 12 Rate Blood Pressure 146/100 H 139/94 H O2 Saturation 97 97 Oxygen O2 Source Room air PD MEDICAL DECISION MAKING - ED course Complexity details: reviewed old records (prior visits and [facility]. ), considered differential (seems to be acute process and is having clinically evident abscess/infection of the gum. ), d/w patient Departure - Departure Disposition: 01 Home, Self Care Clinical Impression: Dental abscess Condition: Stable Record reviewed to determine appropriate education?: Yes Instructions: ED Abscess Dental Prescriptions: Azithromycin [Zithromax] 250 mg PO DAILY #6 tablet Hydrocodone/Acetaminophen [[place] 5-325 Tablet] 1 each PO Q6H PRN #20 tablet PRN Reason: Pain Naproxen 500 mg PO BID #20 tablet Comments: Stay well-hydrated. Use antiseptic mouth wash around the area to clean the gums several times a day. Anti-inflammatory naproxen twice daily with food for the next 7 to 10 days. Antibiotic as directed. Add Tylenol or hydrocodone as need ed for pain. Call the dental clinic for an appointment. They are starting to see if people so should be able to provide a soon appointment. Discharge Date/Time: 09/02/19 14:19
[2019-09-02] MEDS ORDERED: AZITHROMYCIN 250 MG TABLET PO STA (14:00)
[2019-09-02] MEDS ORDERED: HYDROcod/ACETAM 7.5 MG/325 MG TABLET PO STA (14:00)
[2019-09-02] MEDS ORDERED: NAPROXEN 250 MG TABLET PO STA (14:00)
[2019-09-02 14:16] VITALS: BP 139/94
== END 2019-09-02 14:19 | disposition home or self-care (01) ==
LOC: ED 12:44
DX: K04.7 Periapical abscess without sinus (principal); I10 Essential (primary) hypertension; Z86.718 Personal history of other venous thrombosis and embolism
CPT/HCPCS: 99283; A9270

== ENCOUNTER 2020-12-17 11:59 | Emergency (ER) | payer MEDICAID ==
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
--- NOTE | 2020-12-17 12:33 | XRAY Report ---
PROCEDURE: Foot 3 View LT INDICATIONS: Trauma TECHNIQUE: 3 views of the foot were acquired. COMPARISON: None FINDINGS: Bones: Acute slightly comminuted fracture involving fifth metatarsal base is seen with fracture line extending through fifth TMT joint space. No other fracture or dislocation is seen. No suspicious bony lesion. Soft tissues: No tibiotalar joint effusion. Achilles tendon appears normal. IMPRESSION: Comminuted and nondisplaced intra-articular fracture involving fifth metatarsal base as above. Reviewed by: Renato Osullivan MD on 12/17/2020 12:31 PM PDT Approved by: Renato Osullivan MD on 12/17/2020 12:31 PM PDT Station ID: [id number]
--- NOTE | 2020-12-17 12:46 | XRAY Report ---
PROCEDURE: Wrist 3 View RT INDICATIONS: GLF and pain TECHNIQUE: 3 views of the wrist were acquired. COMPARISON: None FINDINGS: Bones: Triquetral fracture of indeterminate age. Wwlj-at-ljdzwlzq first CMC joint osteoarthritis. Mil d triscaphe joint arthritis. Soft tissues: No suspicious soft tissue calcifications. IMPRESSION: Triquetral fracture of indeterminate age. Recommend correlation for point tenderness. Reviewed by: Rita Meyer MD, PhD on 12/17/2020 12:45 PM PDT Approved by: Rita Meyer MD, PhD on 12/17/2020 12:45 PM PDT Station ID: [id number]
[2020-12-17 13:34] VITALS: BP 140/90
== END 2020-12-17 13:33 | disposition home or self-care (01) ==
LOC: ED 11:59
DX: S92.355A Nondisplaced fracture of fifth metatarsal bone, left foot, initial encounter for closed fracture (principal); W01.0XXA Fall on same level from slipping, tripping and stumbling without subsequent striking against object, initial encounter; Y93.K1 Activity, walking an animal; S62.114 Nondisplaced fracture of triquetrum [cuneiform] bone, right wrist; X58.XXXS Exposure to other specified factors, sequela; M19.031 Primary osteoarthritis, right wrist; I10 Essential (primary) hypertension; Z87.891 Personal history of nicotine dependence
CPT/HCPCS: 99283; 99284

== ENCOUNTER 2020-12-24 07:35 | Outpatient (CLI) | payer MEDICAID ==
[2020-12-24 08:00] LABS: BASOPHILS # (AUTO) 0.1 10^3/uL (0.0-0.1); BASOPHILS % (AUTO) 1.2 %; EOSINOPHILS # (AUTO) 0.4 10^3/uL (0.0-0.7); EOSINOPHILS % (AUTO) 5.6 %; HCT - HEMATOCRIT 44.7 % (37.0-47.0); HGB - HEMOGLOBIN 14.1 g/dL (12.0-16.0); LYMPHOCYTES # (AUTO) 2.9 10^3/uL (1.5-3.5); LYMPHOCYTES % (AUTO) 43.5 %; MEAN CORPUSCULAR HEMOGLOBIN 28.5 pg (27.0-31.0); MEAN CORPUSCULAR HGB CONC 31.5 g/dL (32.0-36.0); MEAN CORPUSCULAR VOLUME 90.3 fL (81.0-99.0); MEAN PLATELET VOLUME 9.2 fL (7.9-10.8); MONOCYTES # (AUTO) 0.4 10^3/uL (0.0-1.0); MONOCYTES % (AUTO) 6.6 %; NEUTROPHILS # (AUTO) 2.8 10^3/uL (1.5-6.6); NEUTROPHILS % (AUTO) 42.8 %; PLT - PLATELET COUNT 334 10^3/uL (130-450); RED BLOOD COUNT 4.95 10^6/uL (4.20-5.40); RED CELL DISTRIBUTION WIDTH 13.5 % (12.0-15.0); WHITE BLOOD COUNT 6.6 x10^3/uL (4.8-10.8)
[2020-12-24 08:12] LABS: ALBUMIN 4.3 g/dL (3.2-5.5); ALBUMIN/GLOBULIN RATIO 1.3 (1.0-2.2); ALKALINE PHOSPHATASE 82 IU/L (42-121); ALT ALANINE AMINOTRANSFERASE 18 IU/L (10-60); AST ASPARTATE AMINOTRANSFERASE 16 IU/L (10-42); BILIRUBIN,TOTAL 0.7 mg/dL (0.2-1.0); BUN - BLOOD UREA NITROGEN 25 mg/dL (6-20); CALCIUM 9.5 mg/dL (8.5-10.3); CARBON DIOXIDE - CO2 25 mmol/L (21-32); CHLORIDE 105 mmol/L (101-111); CHOL/HDL RATIO 4.4 (<4.4); CHOLESTEROL 217 mg/dL; CREATININE 1.1 mg/dL (0.4-1.0); GFR - MDRD 52 (>89); GLUCOSE 113 mg/dL (70-100); HDL CHOLESTEROL 49 mg/dL; LDL CHOLESTEROL,CALCULATED 125 mg/dL; LDL/HDL RATIO 2.6 (<4.4); SODIUM 140 mmol/L (135-145); TOTAL PROTEIN 7.5 g/dL (6.7-8.2); TRIGLYCERIDES 214 mg/dL; VLDL CHOLESTEROL 43 mg/dL
[2020-12-24 08:23] LABS: THYROID STIMULATING HORMONE 4.75 uIU/mL (0.34-5.60)
== END 2020-12-24 07:36 | disposition home or self-care (01) ==
LOC: LAB 07:35
PROVIDERS: ATTEND Family Medicine
DX: I10 Essential (primary) hypertension (principal); S62.91XS Unspecified fracture of right hand, sequela; E66.01 Morbid (severe) obesity due to excess calories
CPT/HCPCS: 36415; 80050; 80061; 83721

== ENCOUNTER 2021-02-04 10:46 | Outpatient (CLI) | payer MEDICAID ==
--- NOTE | 2021-02-13 02:22 | XRAY Report ---
PROCEDURE: Foot 3 View LT INDICATIONS: FRACTURE OF FIFTH METATARSAL BONE LEFT FOOT TECHNIQUE: 3 views of the foot were acquired. Images became available for review on 02/12/2021. COMPARISON: X-ray foot 12/17/2020. FINDINGS: Bones: There is a mildly displaced fracture of the fifth metatarsal base. While portions appear to de monstrate mild interval healing, there is a mildly increased appearance of fracture fragment diastase s along the lateral aspect.. No suspicious bony lesions. Soft tissues: No tibiotalar joint effusion. Achilles tendon appears normal. IMPRESSION: Fifth metatarsal base fracture with portion demonstrating mild increased diastases of fracture fragme nts as above. Reviewed by: Silvia Nichols MD on 02/13/2021 1:48 AM PDT Approved by: Silvia Nichols MD on 02/13/2021 1:48 AM PDT Station ID: [id number]
--- NOTE | 2021-02-13 09:41 | XRAY Report ---
PROCEDURE: Wrist 3 View RT INDICATIONS: DISPLACED FX OF TRIQUETRUM, R WRIST TECHNIQUE: 3 views of the wrist were acquired. COMPARISON: Right wrist radiographs 12/17/2020 FINDINGS: Bones: Small osseous fragment again seen projecting dorsal to the proximal carpal row, which does not appear significantly changed when compared to the prior exam. No new osseous abnormality is seen. Mi ld degenerative changes are seen at the triscaphe and first carpometacarpal joint. Soft tissues: No suspicious soft tissue calcifications. IMPRESSION: Minimally displaced triquetral fracture again demonstrated at the dorsum of the wrist. Reviewed by: Armani Ferrer MD on 02/13/2021 9:39 AM PDT Approved by: Armani Ferrer MD on 02/13/2021 9:39 AM PDT Station ID: [id number]
== END 2021-02-04 10:47 | disposition home or self-care (01) ==
LOC: DI.N 10:46
PROVIDERS: ATTEND Orthopaedic Surgery
DX: S92.352A Displaced fracture of fifth metatarsal bone, left foot, initial encounter for closed fracture (principal); S62.111 Displaced fracture of triquetrum [cuneiform] bone, right wrist

== ENCOUNTER 2021-05-26 07:41 | Outpatient (CLI) | payer MEDICAID ==
[2021-05-26 08:03] LABS: CALCIUM 8.8 mg/dL (8.5-10.3); CREATININE 1.4 mg/dL (0.4-1.0)
[2021-05-26 09:33] LABS: ESTIMATED AVERAGE GLUCOSE 120 mg/dL (70-100); HEMOGLOBIN A1c% 5.8 % (4.27-6.07)
== END 2021-05-26 07:42 | disposition home or self-care (01) ==
LOC: LAB 07:41
PROVIDERS: ATTEND Family Medicine
DX: R73.9 Hyperglycemia, unspecified (principal); E66.01 Morbid (severe) obesity due to excess calories; I10 Essential (primary) hypertension; L23.9 Allergic contact dermatitis, unspecified cause; J45.909 Unspecified asthma, uncomplicated
CPT/HCPCS: 36415; 80048; 83036

== ENCOUNTER 2023-02-22 07:35 | Outpatient (CLI) | payer MEDICAID ==
[2023-02-22 07:49] LABS: BASOPHILS # (AUTO) 0.1 10^3/uL (0.0-0.1); BASOPHILS % (AUTO) 0.9 %; EOSINOPHILS # (AUTO) 0.4 10^3/uL (0.0-0.7); EOSINOPHILS % (AUTO) 4.9 %; HCT - HEMATOCRIT 42.2 % (37.0-47.0); HGB - HEMOGLOBIN 13.6 g/dL (12.0-16.0); LYMPHOCYTES # (AUTO) 3.4 10^3/uL (1.5-3.5); LYMPHOCYTES % (AUTO) 42.3 %; MEAN CORPUSCULAR HGB CONC 32.2 g/dL (32.0-36.0); MEAN PLATELET VOLUME 9.3 fL (7.9-10.8); MONOCYTES # (AUTO) 0.6 10^3/uL (0.0-1.0); MONOCYTES % (AUTO) 6.9 %; NEUTROPHILS # (AUTO) 3.6 10^3/uL (1.5-6.6); NEUTROPHILS % (AUTO) 44.6 %; PLT - PLATELET COUNT 333 10^3/uL (130-450); RED BLOOD COUNT 4.69 10^6/uL (4.20-5.40); RED CELL DISTRIBUTION WIDTH 13.8 % (12.0-15.0)
[2023-02-22 08:15] LABS: ALBUMIN 4.4 g/dL (3.2-5.5); ALKALINE PHOSPHATASE 84 IU/L (42-121); ALT ALANINE AMINOTRANSFERASE 18 IU/L (10-60); AST ASPARTATE AMINOTRANSFERASE 18 IU/L (10-42); BILIRUBIN,TOTAL 0.4 mg/dL (0.2-1.0); BUN - BLOOD UREA NITROGEN 22 mg/dL (6-20); CALCIUM 9.8 mg/dL (8.5-10.3); CARBON DIOXIDE - CO2 27 mmol/L (21-32); CHLORIDE 105 mmol/L (101-111); CHOL/HDL RATIO 4.4 (<4.4); CHOLESTEROL 186 mg/dL; CREATININE 1.3 mg/dL (0.6-1.3); ESTIMATED AVERAGE GLUCOSE 126 mg/dL (70-100); GFR - MDRD 42 (>89); GLUCOSE 111 mg/dL (74-104); HDL CHOLESTEROL 42 mg/dL; LDL CHOLESTEROL,CALCULATED 108 mg/dL; LDL/HDL RATIO 2.6 (<4.4); SODIUM 139 mmol/L (135-145); TOTAL PROTEIN 6.6 g/dL (6.4-8.9); TRIGLYCERIDES 180 mg/dL (48-352); VLDL CHOLESTEROL 36 mg/dL
[2023-02-22 08:20] LABS: THYROID STIMULATING HORMONE 3.41 uIU/mL (0.34-5.60)
== END 2023-02-22 07:36 | disposition home or self-care (01) ==
LOC: LAB 07:35
PROVIDERS: ATTEND Physician Assistant
DX: I10 Essential (primary) hypertension (principal); Z13.220 Encounter for screening for lipoid disorders; R73.01 Impaired fasting glucose
CPT/HCPCS: 36415; 80050; 80061; 83036; 83721

== ENCOUNTER 2023-06-21 08:59 | Outpatient (CLI) | payer MEDICAID ==
[2023-06-21 09:31] LABS: CREATININE 1.3 mg/dL (0.6-1.3)
== END 2023-06-21 09:00 | disposition home or self-care (01) ==
LOC: LAB 08:59
PROVIDERS: ATTEND Physician Assistant
DX: N18.32 Chronic kidney disease, stage 3b (principal)
CPT/HCPCS: 36415; 80048

== ENCOUNTER 2023-06-24 06:31 | Day surgery (SDC) | payer MEDICAID ==
[2023-06-24] MEDS: LACTATED RINGERS 1,000 ML IV ONE ×2 (06:41→07:58)
--- NOTE | 2023-06-24 06:49 | ANESTHESIA ---
Pre-Anesthesia VS, & Labs - Diagnosis epigastric discomfort - Procedure egd Height: 5 ft 6 in Weight (kg): 125.9 kg Body Mass Index: 44.8 BMI Classification: Morbidly Obese - NPO >8 hours - Is Patient ?: No - Lab Results Lab results reviewed: Yes Home Medications and Allergies Home Medications: Ambulatory Orders Ibuprofen [Advil] 200 mg PO PRN PRN 06/17/23 Lisinopril/Hydrochlorothiazide [Zestoretic 20-12.5 mg Tablet] 1 each PO QPM 06/17/23 diphenhydrAMINE [Benadryl] 25 mg PO BID PRN 06/17/23 traZODone [Desyrel] 50 mg PO HS 06/17/23 Albuterol [Ventolin Hfa] 2 puffs INH Q4H PRN 04/06/13 Ibuprofen [Advil] 200 mg PO PRN PRN 06/17/23 Lisinopril/Hydrochlorothiazide [Zestoretic 20-12.5 mg Tablet] 1 each PO QPM 06/17/23 diphenhydrAMINE [Benadryl] 25 mg PO BID PRN 06/17/23 traZODone [Desyrel] 50 mg PO HS 06/17/23 Allergies/Adverse Reactions: Allergies Allergy/AdvReac Type Severity Reaction Status Date / Time sodium ferric gluconate Allergy Severe Respiratory Verified 12/17/20 12:10 complex [From Ferrlecit] sucrose [From Ferrlecit] Allergy Severe Respiratory Verified 12/17/20 12:10 acetaminophen [From Percocet] Allergy Unknown Verified 06/17/23 12:19 adhesive Allergy Rash Verified 12/17/20 12:10 amoxicillin [Amoxicillin] Allergy Rash Verified 12/17/20 12:10 clindamycin Allergy Rash Verified 12/17/20 12:10 guaifenesin [From Mucinex] Allergy Itching Verified 06/17/23 12:30 iron Allergy Unknown Verified 12/17/20 12:10 oxycodone HCl * Allergy vomiting Verified 12/17/20 12:10 [From Percocet] Penicillins Allergy Rash Verified 12/17/20 12:10 Anes History & Medical History - Anesthetic History Anesthesia Complications: reports: No previous complications Family history of Anesthesia Complications: Denies Family history of Malignant Hyperthermia: Denies - Medical History Cardiovascular: reports: Hypertension, Deep vein thrombosis, Other Pulmonary: reports: Asthma, Other Gastrointestinal: reports: GERD, Ulcers Urinary: reports: None Neuro: reports: None Musculoskeletal: reports: Chronic back pain Endocrine/Autoimmune: reports: None Blood Disorders: reports: None Skin: reports: None Smoking Status: Former smoker Psychosocial: reports: Cannabis - Surgical History Gynecologic: reports: 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 Orthopedic: reports: 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 surgery Exam General: Alert, Oriented x3, Cooperative Dental: WNL Mouth Openin Fingerbreadth Neck Mobility: Normal Mallampati classification: III Respiratory: Lungs clear, Normal breath sounds Cardiovascular: Regular rate Neurological: Normal speech Mental/Cognitive Status: Alert/Oriented X3, Normal for patient Plan Anesthesia Type: Total IV Consent for Procedure(s) Verified and Reviewed: Yes Code Status: Attempt Resuscitation ASA classification: 3-Severe systemic disease Is this case an emergency?: No
[2023-06-24] MEDS ORDERED: PROPOFOL 200 MG/20 ML VIAL IVP ONE (06:56)
[2023-06-24] MEDS ORDERED: MIDAZOLAM 2 MG/2 ML VIAL ONE (06:56)
[2023-06-24] MEDS ORDERED: LIDOCAINE-MPF 2% 5 ML VIAL ONE (06:56)
--- NOTE | 2023-06-24 07:32 | HISTORY & PHYSICAL EXAMINATION ---
Chief Complaint - Chief Complaint Chief Complaint: here for egd History of Present Illness - History Obtained From Records Reviewed: yes History obtained from: pt Exam Limitations: none - History of Present Illness HPI Comment/Other: progressive ugi upset and nausea with little relief with antacids History - Past Medical History Cardiovascular: reports: Hypertension, Deep vein thrombosis, Other Respiratory: reports: Asthma, Other Neuro: reports: None Endocrine/Autoimmune: reports: None GI: reports: GERD, Ulcers POLE SHAVER: reports: None : reports: None HEENT: reports: Other Psych: reports: Anxiety, Panic attacks, ADD/ADHD, Post traumatic stress disorder Musculoskeletal: reports: Chronic back pain Derm: reports: None MRSA Hx?: No - Past Surgical History Ortho: reports: 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 surgery /POLE SHAVER: reports: 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 - POLST Patient has POLST: No Meds/Allgy - Home Medications Home Medications: Ambulatory Orders Medication Instructions Recorded Confirmed Albuterol [Ventolin Hfa] 2 puffs INH Q4H PRN 04/06/13 06/24/23 Ibuprofen [Advil] 200 mg PO PRN PRN 06/17/23 06/17/23 Lisinopril/Hydrochlorothiazide 1 each PO QPM 06/17/23 06/24/23 [Zestoretic 20-12.5 mg Tablet] diphenhydrAMINE [Benadryl] 25 mg PO BID PRN 06/17/23 06/24/23 traZODone [Desyrel] 50 mg PO HS 06/17/23 06/24/23 - Allergies Allergies/Adverse Reactions: Allergies Allergy/AdvReac Type Severity Reaction Status Date / Time sodium ferric gluconate Allergy Severe Respiratory Verified 12/17/20 12:10 complex [From Ferrlecit] sucrose [From Ferrlecit] Allergy Severe Respiratory Verified 12/17/20 12:10 acetaminophen [From Percocet] Allergy Unknown Verified 06/17/23 12:19 adhesive Allergy Rash Verified 12/17/20 12:10 amoxicillin [Amoxicillin] Allergy Rash Verified 12/17/20 12:10 clindamycin Allergy Rash Verified 12/17/20 12:10 guaifenesin [From Mucinex] Allergy Itching Verified 06/17/23 12:30 iron Allergy Unknown Verified 12/17/20 12:10 oxycodone HCl * Allergy vomiting Verified 12/17/20 12:10 [From Percocet] Penicillins Allergy Rash Verified 12/17/20 12:10 Review of Systems - Other Findings Other Findings: 10 pt ros as above otherwise unremarkable Exam - Vital Signs Vital Signs: Vital Signs x48h Temp Pulse Resp BP Pulse Ox O2 Flow Rate 06/24/23 06:48 36.2 C L 96 16 121/79 97 97 - Physical Exam General Appearance: positive: No acute distress, Alert Eyes Bilateral: positive: PERRL, EOMI ENT: positive: No signs of dehydration Neck: positive: No JVD, Trachea midline Respiratory: positive: No respiratory distress Cardiovascular: positive: Regular rate & rhythm Abdomen: positive: No distention Neurologic/Psychiatric: positive: Oriented x3 Conclusion/Plan - Problem List (1) Indigestion Conclusion/Plan: progressive symptoms with little relief with antacids. plan egd with biopsies to rule out h pylori, celiac, eosinophilic esophagitis,etc parq held and consent obtained - Lab Results Lab results reviewed: Yes
[2023-06-24 08:14] VITALS: O2SAT 96
[2023-06-24 08:23] VITALS: BP 106/85
--- NOTE | 2023-06-24 11:59 | ANESTHESIA POST OP EVALUATION ---
Anesthesia Post Eval - Post Anesthesia Eval Vitals: Last Vital Signs Temp 36.1 C L 06/24/23 08:20 Pulse 83 06/24/23 08:20 Resp 16 06/24/23 08:20 BP 106/85 H 06/24/23 08:20 Pulse Ox 96 06/24/23 08:20 O2 Flow Rate 97 06/24/23 06:48 CV Function Including HR & BP: Stable Pain Control: Satisfactory Nausea & Vomiting: Negative Mental Status: Baseline Respiratory Status: Airway Patent Hydration Status: Satisfactory Anesthesia Complications: None
== END 2023-06-24 06:32 | disposition home or self-care (01) ==
LOC: SDS 06:31
PROVIDERS: ATTEND Surgery
PROC: 0DB78ZX Excision of Stomach, Pylorus, Via Natural or Artificial Opening Endoscopic, Diagnostic (ICD-10-PCS; 2023-06-24)
PROC: 0DB68ZX Excision of Stomach, Via Natural or Artificial Opening Endoscopic, Diagnostic (ICD-10-PCS; 2023-06-24)
PROC: 0DB28ZX Excision of Middle Esophagus, Via Natural or Artificial Opening Endoscopic, Diagnostic (ICD-10-PCS; 2023-06-24)
PROC: 0DB38ZX Excision of Lower Esophagus, Via Natural or Artificial Opening Endoscopic, Diagnostic (ICD-10-PCS; 2023-06-24)
PROC: 0DB98ZX Excision of Duodenum, Via Natural or Artificial Opening Endoscopic, Diagnostic (ICD-10-PCS; principal; 2023-06-24 07:30)
DX: K30 Functional dyspepsia (principal); K25.9 Gastric ulcer, unspecified as acute or chronic, without hemorrhage or perforation; K29.50 Unspecified chronic gastritis without bleeding; K31.84 Gastroparesis; E66.01 Morbid (severe) obesity due to excess calories; Z68.41 Body mass index [BMI] 40.0-44.9, adult; Z87.891 Personal history of nicotine dependence
CPT/HCPCS: 43239; J7120

== ENCOUNTER 2023-07-20 13:30 | Outpatient (CLI) | payer MEDICAID ==
--- NOTE | 2023-07-20 15:30 | XRAY Report ---
PROCEDURE: Knee 4 View RT INDICATIONS: RIGHT KNEE PAIN TECHNIQUE: 4 views of the knee(s) were acquired. COMPARISON: 01/27/2018 FINDINGS: Bones: No fractures or dislocations. Tricompartmental osteoarthritic changes with osteophytosis and severe medial joint space narrowing. Moderate joint space narrowing of the left knee medial compartm ent. No suspicious bony lesions. Soft tissues: Trace knee joint effusion. No suspicious soft tissue calcifications or masses. IMPRESSION: 1.No acute bony abnormality. 2.Severe osteoarthritic changes of the right knee, most pronounced within the medial compartment. Reviewed by: Maldonado Zamarripa MD on 07/20/2023 3:29 PM PDT Approved by: Maldonado Zamarripa MD on 07/20/2023 3:29 PM PDT Station ID: [id number]
== END 2023-07-20 23:59 | disposition home or self-care (01) ==
LOC: DI.WOS 13:30
PROVIDERS: ATTEND Physician Assistant Surgical
DX: M17.11 Unilateral primary osteoarthritis, right knee (principal)

== ENCOUNTER 2023-07-26 13:18 | Emergency (ER) | payer MEDICAID ==
--- NOTE | 2023-07-26 14:55 | XRAY Report ---
PROCEDURE: Ribs w/PA Chest 3+V RT INDICATIONS: R rib pain, cough TECHNIQUE: 2 views of the ribs were acquired, along with a single view chest. COMPARISON: 06/07/2014 FINDINGS: Limited exam secondary to patient motion. Surgical changes and devices: None. Bones and chest wall: Findings detail is obscured by patient motion. There is no gross displaced rib fracture. No visible bone lesion. Lungs and pleura: Probable right medial lower lung consolidation..There is diffuse thickening of the interstitial markings bilaterally. Minor opacity in the left lung base. No pleural effusions or pneu mothorax. Mediastinum: Mediastinal contours appear normal. Heart size is normal. IMPRESSION: Given patient motion, no displaced rib fractures. Probable right medial lower lung atelectatic changes without pneumonia cannot be excluded. Chronic interstitial thickening may indicate fibrosis or chronic bronchitis. Reviewed by: Afia Lopez MD on 07/26/2023 2:53 PM PDT Approved by: Afia Lopez MD on 07/26/2023 2:53 PM PDT Station ID: [id number]
--- NOTE | 2023-07-26 16:04 | ED Physician Documentation ---
History of Present Illness - Stated complaint Stated Complaint: LOWER BACK PX - Chief complaint Chief Complaint: Back Pain - History obtained from History obtained from: Patient - Additonal information Additional information: Patient is a 58-year-old female with a history of asthma presenting for evaluation of right-sided chest pain after forceful cough this morning. Has been coughing for the past 2 weeks. Reports having ongoing pain to the right side and felt a pop and was concerned about a broken rib. No reported fevers. No congestion. Denies feeling short of air. No abdominal symptoms. Has been taking Mucinex. Review of Systems Constitutional: denies: Fever Cardiac: reports: Chest pain / pressure Respiratory: reports: Cough. 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 : None HEENT: Other Psych: Anxiety, Panic attacks, ADD/ADHD, Post traumatic stress disorder Musculoskeletal: Chronic back pain Derm: None - Past Surgical History Past Surgical History: Yes Ortho: 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 surgery /PHYSICAL OPTICS TEACHER: 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 - Present Medications Home Medications: Ambulatory Orders Medication Instructions Recorded Confirmed Albuterol [Ventolin Hfa] 2 puffs INH Q4H PRN 04/06/13 06/24/23 Ibuprofen [Advil] 200 mg PO PRN PRN 06/17/23 06/17/23 Lisinopril/Hydrochlorothiazide 1 each PO QPM 06/17/23 06/24/23 [Zestoretic 20-12.5 mg Tablet] diphenhydrAMINE [Benadryl] 25 mg PO BID PRN 06/17/23 06/24/23 traZODone [Desyrel] 50 mg PO HS 06/17/23 06/24/23 Azithromycin [Zithromax] 1 tab PO DAILY #6 tablet 07/26/23 HYDROcod/ACETAM 5/325 [[place] 5/325] 1 tablet PO Q6H PRN #12 tablet 07/26/23 Lidocaine Patch 5% [Lidoderm Patch] 1 patch TOP DAILY PRN #10 patch 07/26/23 - Allergies Allergies/Adverse Reactions: Allergies Allergy/AdvReac Type Severity Reaction Status Date / Time sodium ferric gluconate Allergy Severe Respiratory Verified 07/26/23 13:24 complex [From Ferrlecit] sucrose [From Ferrlecit] Allergy Severe Respiratory Verified 07/26/23 13:24 acetaminophen [From Percocet] Allergy Unknown Verified 07/26/23 13:24 adhesive Allergy Rash Verified 07/26/23 13:24 amoxicillin [Amoxicillin] Allergy Rash Verified 07/26/23 13:24 clindamycin Allergy Rash Verified 07/26/23 13:24 guaifenesin [From Mucinex] Allergy Itching Verified 07/26/23 13:24 iron Allergy Unknown Verified 07/26/23 13:24 oxycodone HCl * Allergy vomiting Verified 07/26/23 13:24 [From Percocet] Penicillins Allergy Rash Verified 07/26/23 13:24 - Social History Does the pt smoke?: Yes Smoking Status: Current every day smoker Does the pt drink ETOH?: No Does the pt have substance abuse?: No - Immunizations Immunizations are current?: No - POLST Patient has POLST: No PD ED PE NORMAL - General General: Alert and oriented X 3, No acute distress, Well developed/nourished - HEENT HEENT: Atraumatic, Moist mucous membranes - Neck Neck: Supple, no meningeal sign - Cardiac Cardiac: RRR, Strong equal pulses, Other (Right lateral chest wall tenderness, no bruising, no crepitus, no rash) - Respiratory Respiratory: No respiratory distress, Clear bilaterally - Abdomen Abdomen: Normal bowel sounds, Soft, Non tender, Non distended - Derm Derm: Warm and dry - Extremities Extremities: No edema Results - Vitals Vitals: Vital Signs - 24 hr 07/26/23 07/26/23 13:25 16:33 Temperature 36.3 C L Heart Rate 77 72 Respiratory 20 18 Rate Blood Pressure 140/105 H 140/81 H O2 Saturation 99 96 Oxygen O2 Source Room air PD Medical Decision Making - ED course Complexity details: reviewed results, d/w patient ED course: Patient is a 58-year-old female presenting for right-sided rib pain after forceful coughing.Vital signs appear stable. She has been coughing for over a week and a half. X-ray reviewed and no pneumothorax. Concerns for consolidation in the right lobe. Given duration of cough and x-ray findings we will treat for pneumonia. No obvious rib fractures but patient aware that nondisplaced rib fractures may not be well-visualized - Will also prescribe medications to help with pain control. Patient understanding of treatment plan as well as concerning symptoms to return for. Departure - Departure Disposition: 01 Home, Self Care Clinical Impression: CAP (community acquired pneumonia), Right-sided chest wall pain Condition: Stable Instructions: ED Strain Chest Wall, ED Pneumonia Adult Prescriptions: Lidocaine Patch 5% [Lidoderm Patch] 1 patch TOP DAILY PRN #10 patch PRN Reason: pain HYDROcod/ACETAM 5/325 [[place] 5/325] 1 tablet PO Q6H PRN #12 tablet PRN Reason: Pain Azithromycin [Zithromax] 1 tab PO DAILY #6 tablet Comments: Your chest x-ray does not show any obvious of broken ribs but there are concerns for pneumonia. Sometimes rib fractures are also not seen initially on an x- ray. I have sent medication to help you with pain as well as an antibiotic to the [facility] pharmacy. Return to the emergency department with any worsening symptoms such as feeling more short of breath. I am prescribing a short course of narcotic pain medication for you. These are potentially dangerous and addictive medications that should be used carefully. These medications may constipate you. Take an orur-gui-kjnkali stool softener (docusate) twice daily with plenty of water while taking these medications. If y ou go 24 hours without a bowel movement, take [id number] miralax, per package instructions. Do not drink or drive while taking these medications. If you received narcotic or sedating medications while in the emergency department, do not drive for 24 hours. Store this medication in a safe, secure place and out of reach of children. It is a violation of federal law to give or sell this medication to another person or to use in a manner other than prescribed. The ED will not refill narcotic prescriptions, including prescriptions lost or stolen. To dispose of unwanted medications: 1. [facility] at [address] in [place] has a medication drop box. They accept prescription medications (in pill form) Wednesday through Wednesday 9:00 a.m. to 5:00 p.m. 2. The [facility] accepts prescription medications (in pill form only) for disposal year round. Call for more information. 3. Contact the [facility] for the next [facility] sponsored prescription drug collection event. , [phone], or [phone]; Note that many narcotic pain relievers also contain Tylenol/acetaminophen. Please ensure that your total dose of acetaminophen from all sources does not exceed 3 g (3000 mg) per day. Discharge Date/Time: 07/26/23 16:33
[2023-07-26] MEDS: HYDROcod/ACETAM 5/325 MG TABLET PO STA (16:17)
[2023-07-26 16:42] VITALS: BP 140/81; O2SAT 96
== END 2023-07-26 16:33 | disposition home or self-care (01) ==
LOC: ED 13:18
DX: J18.9 Pneumonia, unspecified organism (principal); R07.89 Other chest pain; I10 Essential (primary) hypertension; F17.200 Nicotine dependence, unspecified, uncomplicated
CPT/HCPCS: 71101; 99283; A9270

== ENCOUNTER 2023-08-12 08:27 | Outpatient (CLI) | payer MEDICAID ==
--- NOTE | 2023-08-12 14:34 | XRAY Report ---
PROCEDURE: Chest 2V INDICATIONS: RIGHT SIDED RIB PAIN, PNEUMONIA TECHNIQUE: 2 views of the chest were acquired. COMPARISON: None available. FINDINGS: Surgical changes and devices: None. Lungs and pleura: No pleural effusions or pneumothorax. Lungs are clear. Mediastinum: Mediastinal contours appear normal. Heart size is normal. Bones and chest wall: No suspicious bony lesions. Overlying soft tissues appear unremarkable. IMPRESSION: No acute cardiopulmonary process. Reviewed by: Kevin Mejia MD on 08/12/2023 2:33 PM PDT Approved by: Kevin Mejia MD on 08/12/2023 2:33 PM PDT Station ID: [id number]
--- NOTE | 2023-08-12 22:05 | XRAY Report ---
PROCEDURE: Ribs 2V RT INDICATIONS: RIGHT SIDED RIB PIN, PNEUMONIA TECHNIQUE: 2 views of the ribs were acquired. COMPARISON: CXR earlier today, 07/26/2023. FINDINGS: Skin marker overlying the right lateral ribs. Bones and chest wall: No fractures or dislocations. No suspicious bony lesions. Overlying soft tis sues appear unremarkable. Lungs and pleura: The visualized lung appears clear. No pleural effusions or pneumothorax are visib le. IMPRESSION: No displaced right-sided rib fracture. Reviewed by: Kevin Mejia MD on 08/12/2023 10:03 PM PDT Approved by: Kevin Mejia MD on 08/12/2023 10:03 PM PDT Station ID: [id number]
== END 2023-08-12 08:28 | disposition home or self-care (01) ==
LOC: DI 08:27
PROVIDERS: ATTEND Physician Assistant
DX: R07.81 Pleurodynia (principal)